=== PATIENT | male | born 1995 | race Caucasian/White ===

== ENCOUNTER 2017-09-19 13:44 | Emergency (ER) | payer BC ==
[~2017-09-19] VITALS: Ht 180.3 cm; Wt 90.7 kg
[2017-09-19 14:30] VITALS: BP 151/77
[2017-09-19] MEDS ORDERED: AMOX875T PO (15:30)
[2017-09-19] MEDS ORDERED: ACET-704 PO (15:30)
--- NOTE | 2017-09-19 15:30 | PHYS DOC ---
Past Medical History Past Medical History: No Pertinent History Past Surgical History: No Surgical History Alcohol Use: None Drug Use: None Adult General Chief Complaint Chief Complaint: DENTAL PROBLEM HPI HPI Patient is a 22 year old male who presents with right lower wisdom tooth dental pain that began a month ago. Patient states he broke off the tooth a couple days ago. Patient denies any fever or trismus. Review of Systems Review of Systems Constitutional: Denies fever or chills [] Eyes: Denies change in visual acuity, redness, or eye pain [] HENT: Dental pain Musculoskeletal: Denies back pain or joint pain [] Integument: Denies rash or skin lesions [] Neurologic: Denies headache, focal weakness or sensory changes [] Allergies Allergies Allergies Coded Allergies Type Severity Reaction Last Updated Verified No Known Drug Allergies 09/19/17 No Physical Exam Physical Exam Constitutional: Well developed, well nourished, no acute distress, non-toxic appearance. [] HENT: Normocephalic, atraumatic, bilateral external ears normal, oropharynx moist, no oral exudates, nose normal. [] Right lower gum wisdom tooth is broken and decayed. No gum erythema or swelling. Skin: Warm, dry, no erythema, no rash. [] Back: No tenderness, no CVA tenderness. [] Extremities: No tenderness, no cyanosis, no clubbing, ROM intact, no edema. [] Neurologic: Alert and oriented X 3, normal motor function, normal sensory function, no focal deficits noted. [] Psychologic: Affect normal, judgement normal, mood normal. [] Current Patient Data Vital Signs Vital Signs Date Time Temp Pulse Resp B/P (MAP) Pulse Ox O2 Delivery O2 Flow Rate FiO2 09/19/17 14:30 98.4 96 16 100 Room Air 98.4 EKG EKG [] Radiology/Procedures Radiology/Procedures [] Course & Med Decision Making Course & Med Decision Making Pertinent Labs and Imaging studies reviewed. (See chart for details) Patient has infected dental caries. Discharged with amoxicillin and Tylenol 3. Follow-up with in a dentist in 1-2 weeks. Dragon Disclaimer Dragon Disclaimer This electronic medical record was generated, in whole or in part, using a voice recognition dictation system. Departure Departure Impression: Primary Impression: Infected dental caries Disposition: HOME, SELF-CARE Condition: STABLE Patient Instructions: Dental Caries-Brief Additional Instructions: You seen for dental infection. Ensure you complete antibiotics and follow-up with your dentist as soon as possible. Scripts Acetaminophen With Codeine (TYLENOL WITH CODEINE #3 TABLET) 1 Each Tablet 1 TAB PO PRN Q6HRS Y for PAIN, #20 TAB Prov: MILADIS OBRIEN APRN 09/19/17 Amoxicillin (AMOXICILLIN) 875 Mg Tablet 1 TAB PO BID, #20 TAB Prov: MILADIS OBRIEN APRN 09/19/17 MILADIS OBRIEN APRN Sep 19, 2017 15:30
== END 2017-09-19 15:43 | disposition home or self-care (01) ==
LOC: ER 13:44
DX: K04.7 Periapical abscess without sinus (principal); K02.9 Dental caries, unspecified
CPT/HCPCS: 99283

== ENCOUNTER 2018-04-14 11:31 | Emergency (ER) | payer BC | END 2018-04-14 13:45 | disposition home or self-care (01) | LOC: ER 11:31 | DX: M54.6 Pain in thoracic spine (principal); M54.5 Low back pain; F41.9 Anxiety disorder, unspecified | CPT/HCPCS: 72072; 72100; 93005; 99284 ==

== ENCOUNTER 2020-01-08 09:33 | Emergency (ER) | payer SELFPAY ==
[~2020-01-08] VITALS: Ht 182.9 cm; Wt 92.7 kg
[~2020-01-08 09:33] MED LIST: ACET-704 PO; AMOX875T PO; CYCL5TAB PO; IBUP-1060 PO
[2020-01-08 09:44] VITALS: BP 139/102
[2020-01-08] MEDS ORDERED: HYDROcodone/APAP 5/325MG 1 TAB TABLET PO STA (09:55)
[2020-01-08] MEDS ORDERED: HYDR-3164 PO (10:25)
--- NOTE | 2020-01-08 10:25 | PHYS DOC ---
Past Medical History Past Medical History: Anxiety, Other Additional Past Medical Histor: PANIC ATTACK Past Surgical History: No Surgical History Smoking Status: Current Every Day Smoker Alcohol Use: Occasionally Drug Use: None Adult General Chief Complaint Chief Complaint: CLAVICLE INJURY HPI HPI Patient is a 24 year old male who presents with a fall on gravel that happened around 10:00 last night. The patient states that he was drinking and fell and landed on the shoulder. He states his been having left shoulder pain since that time. Rates his pain as 9 out of 10 in severity and sharp. States he took Tylenol at home before arrival. Denies any other complaints. Complete ROS were reviewed and found to be within normal limits, except as documented in the HPI Current Medications Current Medications Current Medications Medications (Trade) Dose Ordered Sig/Porfirio Start Time Stop Time Status Last Admin Dose Admin Acetaminophen/ Hydrocodone Bitart (Lortab 5/325) 1 tab 1X STAT 01/08/20 09:55 01/08/20 10:01 DC 01/08/20 10:08 1 TAB Allergies Allergies Allergies Coded Allergies Type Severity Reaction Last Updated Verified No Known Drug Allergies 09/19/17 No Physical Exam Physical Exam Constitutional: Well developed, well nourished, no acute distress, non-toxic appearance. [] HENT: Normocephalic, atraumatic, bilateral external ears normal, oropharynx moist, no oral exudates, nose normal. [] Eyes: PERRLA, EOMI, conjunctiva normal, no discharge. [] Neck: Normal range of motion, no tenderness, supple, no stridor. [] Cardiovascular:Heart rate regular rhythm, no murmur [] Lungs & Thorax: Bilateral breath sounds clear to auscultation [] Skin: Warm, dry, no erythema, no rash. [] Back: No tenderness, no CVA tenderness. [] Extremities: Tenderness and bruising to his left clavicle area with deformity. ROM intact. Neurologic: Alert and oriented X 3, normal motor function, normal sensory function, no focal deficits noted. [] Psychologic: Affect normal, judgement normal, mood normal. [] Current Patient Data Vital Signs Vital Signs Date Time Temp Pulse Resp B/P (MAP) Pulse Ox O2 Delivery O2 Flow Rate FiO2 01/08/20 09:44 98.1 89 18 139/102 (114) 99 Room Air 98.1 EKG EKG [] Radiology/Procedures Radiology/Procedures [][facility] [address] [place] [address] IMAGING REPORT Signed PATIENT: MAGALYS CORTEZ ACCOUNT: [id number] : 1995 LOCATION: ER AGE: 24 SEX: M EXAM STATUS: REG ER ORD. PHYSICIAN: WEI TORRES APRN REASON: FALL, CLAVICAL FRACTURE PROCEDURE: PORTABLE CHEST 1V Exam performed: X-ray left clavicle, shoulder and chest HISTORY: Fall DATE OF SERVICE: May 2020. COMPARISON: None available FINDINGS: Single AP upright portable view of the chest is obtained. Heart size and mediastinal silhouette is within limits of normal. Pulmonary vascularity is unremarkable. No focal infiltrates, effusion or pneumothorax seen. Fracture mid diaphysis left clavicle noted. 2 views left clavicle demonstrates as well as AP view of the left shoulder in internal and external rotation and Y views are obtained. There is a comminuted fracture mid diaphysis of the left clavicle with mild overriding of the fracture fragments. The glenohumeral and acromioclavicular joint appears preserved. The visualized portion of the lung appears clear. IMPRESSION: No acute cardiopulmonary process seen. Comminuted fracture mid diaphysis of the left clavicle. No acute abnormal mobility seen in the left glenohumeral and coracoclavicular joint.. Electronically signed by: Sara Sky MD (01/08/2020 10:33 AM) [facility] DICTATED and SIGNED BY: SARA SKY MD DATE: 01/08/20 1033 Course & Med Decision Making Course & Med Decision Making Pertinent Labs and Imaging studies reviewed. (See chart for details) Will get imaging and give Molino. Clavicle is displaced. Will place in sling and have follow up with ortho. Dean Disclaimer Jermaine Disclaimer This electronic medical record was generated, in whole or in part, using a voice recognition dictation system. Departure Departure Impression: Primary Impression: Clavicle fracture Disposition: 01 HOME, SELF-CARE Condition: STABLE Referrals: NO PCP (PCP) BOOGIE FREEDMAN MD Patient Instructions: Clavicle Fracture Additional Instructions: Thank you for visiting [facility]. We appreciate you trusting us with your care. If any additional problems come up don't hesitate to return to visit us. Please follow up with your primary care provider so they can plan additional care if needed and know about the problem that you had. If symptoms worsen come back to the Emergency Department. Any concerning symptoms that start such as chest pain, shortness of air, weakness or numbness on one side of the body, running high fevers or any other concerning symptoms return to the ER. Scripts Hydrocodone/Apap 5-325 (NORCO 5-325 TABLET) 1 Each Tablet 1 TAB PO PRN Q6HRS PRN for PAIN for 3 Days, #10 TAB 0 Refills Prov: WEI TORRES APRN 01/08/20 Problem Qualifiers Primary Impression: Clavicle fracture Encounter type: initial encounter Clavicle location: unspecified part of clavicle Fracture type: closed Fracture alignment: displaced Laterality: left Qualified Codes: S42.002A - Fracture of unspecified part of left clavicle, initial encounter for closed fracture WEI TORRES APRN Jan 08, 2020 10:25
--- NOTE | 2020-01-08 10:36 | RAD ---
Exam performed: X-ray left clavicle, shoulder and chest HISTORY: Fall DATE OF SERVICE: May 2020. COMPARISON: None available FINDINGS: Single AP upright portable view of the chest is obtained. Heart size and mediastinal silhouette is within limits of normal. Pulmonary vascularity is unremarkable. No focal infiltrates, effusion or pneumothorax seen. Fracture mid diaphysis left clavicle noted. 2 views left clavicle demonstrates as well as AP view of the left shoulder in internal and external rotation and Y views are obtained. There is a comminuted fracture mid diaphysis of the left clavicle with mild overriding of the fracture fragments. The glenohumeral and acromioclavicular joint appears preserved. The visualized portion of the lung appears clear. IMPRESSION: No acute cardiopulmonary process seen. Comminuted fracture mid diaphysis of the left clavicle. No acute abnormal mobility seen in the left glenohumeral and coracoclavicular joint.. Electronically signed by: Sara Sky MD (01/08/2020 10:33 AM) [facility]
== END 2020-01-08 10:54 | disposition home or self-care (01) ==
LOC: ER 09:33
DX: S42.012A Anterior displaced fracture of sternal end of left clavicle, initial encounter for closed fracture (principal); F41.9 Anxiety disorder, unspecified; F17.200 Nicotine dependence, unspecified, uncomplicated; W18.39XA Other fall on same level, initial encounter; Y93.89 Activity, other specified; Y92.89 Other specified places as the place of occurrence of the external cause; Y99.8 Other external cause status
CPT/HCPCS: 71045; 73000; 73030; 99284

== ENCOUNTER 2020-01-10 17:25 | Emergency (ER) | payer SELFPAY ==
[~2020-01-10] VITALS: Ht 182.9 cm; Wt 92.2 kg
[~2020-01-10 17:25] MED LIST changes: +HYDR-3164 PO
[2020-01-10 17:54] VITALS: BP 134/81
[2020-01-10] MEDS: HYDROcodone/APAP 5/325MG 1 TAB TABLET PO ONE (18:11)
[2020-01-10] MEDS ORDERED: OXYC1TAB15 PO (18:26)
--- NOTE | 2020-01-10 18:27 | PHYS DOC ---
Past Medical History Past Medical History: Anxiety, Other Additional Past Medical Histor: PANIC ATTACK Past Surgical History: No Surgical History Smoking Status: Current Every Day Smoker Alcohol Use: Occasionally Drug Use: None Adult General Chief Complaint Chief Complaint: PAIN CONTROL HPI HPI Patient is a 24 year old who presents to the emergency Department with request for pain medication. Patient states that he was seen here on the and diagnosed with a left clavicle fracture. Patient states that his left clavicle been very uncomfortable and he is out of the pain medication that was prescribed. He denies any tenting of the skin, fever, numbness, tingling, or weakness of the affected extremity. He states he has tried taking a gram of Tylenol today with little relief of his symptoms. 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 He has a follow up appointment with orthopedics on Thursday but is out of pain medication until then. Currently he rates his pain a 10/10 on the pain scale. Review of Systems Review of Systems All other ROS is negative unless otherwise noted in HPI. Current Medications Current Medications Current Medications Medications (Trade) Dose Ordered Sig/Porfirio Start Time Stop Time Status Last Admin Dose Admin Acetaminophen/ Hydrocodone Bitart (Lortab 5/325) 1 tab 1X ONCE 01/10/20 18:15 01/10/20 18:16 DC 01/10/20 18:11 1 TAB Allergies Allergies Allergies Coded Allergies Type Severity Reaction Last Updated Verified No Known Drug Allergies 09/19/17 No Physical Exam Physical Exam See Above Constitutional: Well developed, well nourished, no acute distress, non-toxic appearance. [] HENT: Normocephalic, atraumatic, bilateral external ears normal, nose normal. [] Eyes: PERRLA, EOMI, conjunctiva normal, no discharge. [] Neck: Normal range of motion, no stridor. [] Cardiovascular:Heart rate regular rhythm Lungs & Thorax: Respirations even and unlabored, no retractions, no respiratory distress; left clavicle TTP, no tenting, Skin: Warm, dry, bruising over left clavicle [] Extremities: No cyanosis, ROM intact, no edema. [] Neurologic: Alert and oriented X 3, no focal deficits noted. [] Psychologic: Affect normal, judgement normal, mood normal. [] Current Patient Data Vital Signs Vital Signs Date Time Temp Pulse Resp B/P (MAP) Pulse Ox O2 Delivery O2 Flow Rate FiO2 01/10/20 18:11 16 98 Room Air 01/10/20 17:54 98.1 100 134/81 (98) 98.1 EKG EKG [] Radiology/Procedures Radiology/Procedures [] Course & Med Decision Making Course & Med Decision Making Pertinent Labs and Imaging studies reviewed. (See chart for details) 1808- Spoke with Dr. Whitehead about patient presenting to the ER for pain control. Advised that patient has appointment in office on Thursday for follow up. Per Dr. Whitehead inform patient that these type of fractures will usually heal without surgery and with outpatient follow up only, but pt can be admitted for surgery if he would prefer surgical intervention to have clavicle fixed. 1819- Patient declines admission to the hospital, stated he would like to go the non-operative route. Informed Dr. Whitehead of patient's choice, I will prescribe oxycodone 5/325 mg tablets #[address] patient in a sling. Will advise patient to follow up as planned Thursday. [] Dragon Disclaimer Dragon Disclaimer This electronic medical record was generated, in whole or in part, using a voice recognition dictation system. Departure Departure Impression: Primary Impression: Inadequate pain control Additional Impression: Clavicle fracture Disposition: HOME, SELF-CARE Condition: STABLE Referrals: SCARLET WHITEHEAD MD Patient Instructions: Clavicle Fracture, [id number] Additional Instructions: Fill prescription(s) and use as directed. Recommend application of ice, elevation, and rest of affected extremity. Wear the sling that was placed until follow up appointment with Dr. Whitehead's office. Return to the ER if your symptoms worsen. Scripts Oxycodone/Apap 5-325 (PERCOCET 5-325 MG TABLET ) 1 Each Tablet 1 TAB PO QIDPRN PRN for PAIN MDD 4 Tablet(s) for 5 Days, #20 TAB 0 Refills Prov: YAN ALVAREZ DESIGN PROJECT MANAGER 01/10/20 Problem Qualifiers Additional Impression: Clavicle fracture Encounter type: subsequent encounter Clavicle location: unspecified part of clavicle Fracture type: closed Fracture alignment: displaced Laterality: left Fracture healing: with routine healing Qualified Codes: S42.002D - Fracture of unspecified part of left clavicle, subsequent encounter for fracture with routine healing YAN ALVAREZ APRN Jan 10, 2020 18:27
== END 2020-01-10 18:32 | disposition home or self-care (01) ==
LOC: ER 17:45
DX: S42.012D Anterior displaced fracture of sternal end of left clavicle, subsequent encounter for fracture with routine healing (principal); G89.18 Other acute postprocedural pain; F17.200 Nicotine dependence, unspecified, uncomplicated; W18.39XD Other fall on same level, subsequent encounter; Y93.89 Activity, other specified; Y92.89 Other specified places as the place of occurrence of the external cause; Y99.8 Other external cause status
CPT/HCPCS: 99283